=== PATIENT | male | born 1985 | race Caucasian/White ===

== ENCOUNTER 2022-08-11 15:42 | Emergency (ER) | payer OTHER, SELFPAY ==
[2022-08-11 15:46] VITALS: BP 143/84; PULSE 80; RESP 18; TEMP 36.6; O2SAT 98; BMI 42.9
--- NOTE | 2022-08-11 16:10 | CRLHL7_ITS ---
For Patients: As a result of the Century Cures Act, medical imaging exams and procedure reports are released immediately into your electronic medical record. You may view this report before your referring provider. If you have questions, please contact your health care provider. INDICATION: Abnormal fullness, anterior neck pain. TECHNIQUE: CT head without contrast. COMPARISON: None. FINDINGS: CSF spaces: Within normal limits for age. Brain parenchyma: The chau-white differentiation is normal. No sign of mass, hemorrhage, or midline shift. Skull base and calvarium: The visualized paranasal sinuses and mastoid air cells demonstrate no acute or significant findings. The visualized orbits are grossly unremarkable. No skull fractures. IMPRESSION: Unremarkable noncontrast head CT. Please note that all CT scans at this facility use dose modulation, iterative reconstruction, and/or weight-based dosing when appropriate to reduce radiation dose to as low as reasonably achievable. Dictated by Jhonny Vega MD @ 08/11/2022 5:25:44 PM (Electronically Signed)
--- NOTE | 2022-08-11 16:10 | CRLHL7_ITS ---
For Patients: As a result of the Century Cures Act, medical imaging exams and procedure reports are released immediately into your electronic medical record. You may view this report before your referring provider. If you have questions, please contact your health care provider. INDICATION: Abnormal fullness, anterior neck pain. TECHNIQUE: CT soft tissue of the neck was acquired with 147 cc Isovue 370 IV contrast. COMPARISON: None. FINDINGS: Skull base: Unremarkable. Pharynx/Larynx/Trachea: Epiglottis is normal. Airway is patent. Small left pontine tonsillith. Adjacent soft tissues are otherwise normal. Salivary glands: Unremarkable. Thyroid gland: Unremarkable. No significant nodules. Lymph nodes: No lymphadenopathy. Vessels: Unremarkable for age. Bones: Unremarkable for age. Misc: No inflammation, mass or fluid collection. Lung apices: Unremarkable. IMPRESSION: Unremarkable soft tissue CT of the neck. Please note that all CT scans at this facility use dose modulation, iterative reconstruction, and/or weight-based dosing when appropriate to reduce radiation dose to as low as reasonably achievable. Dictated by Jhonny Vega MD @ 08/11/2022 5:30:43 PM (Electronically Signed)
--- NOTE | 2022-08-11 16:15 | ED.GENADULT ---
HPI - General Adult General Chief complaint: Headache/Migraine Stated complaint: Needs CT for neck Time Seen by Provider: 08/11/22 15:50 Source: patient Mode of arrival: ambulatory History of Present Illness HPI narrative: 37-year-old male smoker presents with a 3 week history of headache starting in the right occiput radiating above the top of the head in into the area behind the right eye. It is not associated with vision changes. Patient reports that this started 3 weeks ago. 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 He was drinking alcohol but did not have any trauma or injury. He states that he had a mild headache initially that he attributed to hangover. When he was about to leave from the trip, he cleared his throat while he happened to be looking down and had sudden pain in the posterior neck area. Does not radiate. No radiculopathy in the arms. Patient states that he was evaluated in urgent care was prescribed prednisone on Monday, started Monday which is 5 days ago. He was also prescribed Flexeril. The Flexeril makes him quite sleepy any takes it in the evening but it does certainly help him fall asleep. His headache has actually been improving a little bit over the past couple of days just in the mornings but does build throughout the day. He takes some ibuprofen in the morning which does a good job of taking care of the headache until about 330. The headache starts to return it does improve if he takes the ibuprofen again worsening in the evenings. It is not associated with neurological changes like vision lost, swallowing difficulty, speech changes, balance or gait issues. He followed up today with primary care as he was directed to do, they had some concerns. This morning he states that when he cleared his voice, he had sudden anterior neck pain, near the Jean-Claude's apple and has now had a hoarse voice ever since that time. He still has the headache but does feel like the prednisone is helping somewhat with that. No injury or trauma. Does not take any blood thinners. Continues to eat and drink normally, has no long-term health problems. He was referred to the ED for imaging by primary care due to concerns with an anatomical injury causing his head and neck pains. Past medical history states his notable only for tobacco use and obstructive sleep apnea, does use CPAP. He takes no long-term prescriptions but has started taking the prednisone and Flexeril as prescribed. Allergies are to Ceclor causing hives. Socially is a smoker, rare social alcohol use, no pertinent travel. No other affected family members. ROS is notable for the generalized HEENT and throat symptoms as described above. Otherwise denies times 12 systems Related Data Previous Rx's Medication Instructions Recorded cyclobenzaprine 10 mg tablet 10 mg PO TID PRN muscle spasm #20 08/05/22 tabs prednisone 20 mg tablet 40 mg PO QDAY #10 tabs 08/05/22 Allergies Allergy/AdvReac Type Severity Reaction Status Date / Time cefaclor [From Ceclor] Allergy Severe Hives Verified 08/11/22 16:45 insect venom Allergy Severe Unknown Verified 08/11/22 16:45 [facility] Medical History ADHD SAPNA (obstructive sleep apnea) Smokes cigarettes Social History Smoking Status: Current every day smoker Exam Const: Vital Signs, click to edit/add: Vital Signs - 24 hr 08/11/22 15:46 Temperature 97.9 F Pulse Rate [Right Pulse Oximeter] 80 Respiratory Rate 18 Blood Pressure [Ri ght Upper Arm] 143/84 H Pulse Oximetry 98 Oxygen Delivery Me thod Room Air Documenting provider has reviewed patient's vital signs: yes General appearance: cooperative and well kempt HENMT: Common normals: normocephalic, TM's normal bilaterally and external nose normal Head and scalp: normocephalic Nose: external nose normal Tympanic membrane: TM's normal bilaterally Mouth: oral and palatal mucosa normal Throat: posterior oropharynx normal Eye: Common normals: PERRL, EOMs intact bilaterally and conjunctivae normal General eye: normal appearance of both eyes Conjunctiva: conjunctiva(e) normal Pupil: PERRL Neck & C-Spine: Common normals: full ROM, no lymphadenopathy, supple, no meningeal signs and thyroid normal General: normal visual inspection and trachea midline; no anterior neck swelling and no torticollis Thyroid: thyroid normal Cervical spine: cervical ROM normal and normal cervical lordosis; no pain with cervical ROM Resp: Common normals: normal respiratory effort and no use of accessory muscles Effort & inspection: able to speak in complete sentences Other: mild expiratory wheeze only. Cardio: Common normals: regular rate, regular rhythm, S1 normal heart sound, S2 normal heart sound, no murmurs and peripheral pulses 2+ throughout Rate: regular rate Rhythm: regular rhythm Heart sounds: S1 normal and S2 normal Peripheral pulses: pulses 2+ throughout Extremity: Common normals: full ROM and normal capillary refill Neuro: Meningeal signs: no meningeal signs Speech: speech normal Gait (neuro): normal gait Motor exam: strength 5/5 throughout, no tremor noted and no movement abnormalities noted Psych: Appearance: well kempt Mood and affect: euthymic mood Insight: insight good Judgement: judgment good Skin: Common normals: no rashes or lesions noted General skin exam: no rashes or lesions noted Course Vital Signs Vital signs: Initial Vital Signs Temperature 97.9 F 08/11/22 15:46 Temperature Source Temporal Artery Scan 08/11/22 15:46 Pulse Rate 80 08/11/22 15:46 Respiratory Rate 18 08/11/22 15:46 Blood Pressure 143/84 H 08/11/22 15:46 Blood Pressure Mean 103 08/11/22 15:46 Blood Pressure Position Sitting 08/11/22 15:46 Pulse Oximetry 98 08/11/22 15:46 Oxygen Delivery Method 08/11/22 15:46 Vital Signs Temperature 97.9 F 08/11/22 15:46 Pulse Rate 80 08/11/22 15:46 Respiratory Rate 18 08/11/22 15:46 Blood Pressure 143/84 H 08/11/22 15:46 Pulse Oximetry 98 08/11/22 15:46 Oxygen Delivery Method 08/11/22 15:46 Temperature 97.9 F 08/11/22 15:46 Pulse Rate 80 08/11/22 15:46 Respiratory Rate 18 08/11/22 15:46 Blood Pressure 143/84 H 08/11/22 15:46 Pulse Oximetry 98 08/11/22 15:46 Oxygen Delivery Method 08/11/22 15:46 Medical Decision Making MDM Narrative Medical decision making narrative: Headache and anterior neck pain following minor potential injury. No signs of CSF leak, head trauma, stroke-like symptoms. New onset headache with worsening presentation, somewhat concerning. I recommended a basic metabolic workup deltoid electrolytes, blood sugar, hydration status, inflammatory markers. He significantly concerned regarding an anatomical injury as was primary care team, recommended a head CT and a neck soft tissue CT to evaluate for any contributing factors. He he was agreeable to this. Awaiting findings. No treatments in the interim. discussed findings with patient. Inflammatory markers are normal. CTs are reassuring. Suspect acid reflux as the etiology of his throat pain today. Recommended continuing on the prednisone since it is helping quite a bit with the headaches. Discussed Tylenol, ibuprofen and continued use of the Flexeril p.r.n.. Chiropractic appointment on Monday if not improving. Follow-up appointment with primary care if not improving in 3 weeks. He verbalizes understanding and agreement, all questions answered Lab Data Lab results reviewed: Yes I reviewed the patient's lab results Labs: Lab Results 08/11/22 08/11/22 Range/Units 16:33 16:33 WBC 13.26 H (4.50-11.00) K/uL RBC 5.38 (4.30-5.90) m/uL Hgb 16.7 (13.5-17.5) gm/dL Hct 47.6 (37.0-53.0) % MCV 89 (80-100) fL MCH 31 (26-34) pg MCHC 35 (32-36) gm/dL RDW Coeff of Kev 11.7 (11.5-15.5) % Plt Count 260 (140-440) K/uL Neut % (Auto) 77.6 H (42.0-72.0) % Lymph % (Auto) 16.4 L (20-44) % [place] % (Auto) 5.1 (0.0-11.0) % Eos % (Auto) 0.0 (0.0-7.0) % Baso % (Auto) 0.1 (0.0-3.0) % Neut # (Auto) 10.30 H (1.7-7.0) K/uL Lymph # (Auto) 2.20 (0.90-2.90) K/uL [place] # (Auto) 0.70 (0.00-0.90) K/UL Eos # (Auto) 0.00 (0.00-0.50) K/uL Baso # (Auto) 0.00 (0.00-0.30) K/uL Sodium 139 (135-149) mmol/L Potassium 4.1 (3.6-5.1) mmol/L Chloride 105 (96-114) mmol/L Carbon Dioxide 26 (20-32) mmol/L BUN 17 (5-24) mg/dL Creatinine 0.7 (0.5-1.5) mg/dL Estimated Creat Clear 152.08 Estimated GFR 123 ml/min Glucose 95 (60-115) mg/dL Calcium 9.3 (8.4-10.6) mg/dL C-Reactive Protein < 0.5 L (0.5-1.0) mg/dL Imaging Data CT of the head and neck: Attestation: I have reviewed the pertinent imaging results. My impression: normal Radiologist's impression: IMPRESSION: Unremarkable noncontrast head CT. IMPRESSION: Unremarkable soft tissue CT of the neck. Discharge Plan Discharge Clinical Impression: Headache, Neck pain Patient Disposition: Home w/ Parent or Adult Condition: Stable Instructions: Acute Headache (DC) Additional Instructions: Good news. The scans look normal. There are no signs of any major injuries in your neck, muscle tears, nerve injuries, infections or other worrisome findings. The head also does not show any tumors, skull fractures or any other worrisome features. I am glad to hear that the prednisone is helping with the headache. What I would recommend is that you take 1 tablet in the morning and then repeat the 2nd tablet at noon for the next 2 days. Take your ibuprofen in the morning, repeat at noon and repeat at 6:00 p.m.. You can mix Tylenol and also if there is persistent headache. I suspect that the prednisone is causing some increased acid reflux especially with your use of your CPAP as we discussed. It is okay to take omeprazole or other stomach acid medicines which are available [id number] to help with that irritation. It should heal within a few days. The prednisone will keep working for a few more days as well. Your inflammatory markers and other blood work were all also very reassuring. Chances are this started from some sort of a virus like influenza, COVID or something similar. When this happens the headaches do tend to last a few weeks but resolved without complication. If you are still symptomatic on Monday, I would make an appointment with a chiropractor. If you are still having symptoms in 3 weeks, I would make a follow-up appoint with my primary care doctor for additional lab testing to look for tick-borne illness, other unusual causes of chronic headaches. You may resume all typical activities, consider taking a half dose of your Flexeril if it is too sedating. Activity Level: No Restrictions Prescriptions: No Action cyclobenzaprine 10 mg tablet 10 mg PO TID PRN (Reason: muscle spasm) Qty: 20 0RF prednisone 20 mg tablet 40 mg PO QDAY Qty: 10 0RF Follow Up/Referrals: Provider,Not a Local [Primary Care Provider] - Stand Alone Forms: [employer] Info Instructions
[2022-08-11 16:49] LABS: Basophils Percent Auto 0.1 % (0.0-3.0); Hematocrit 47.6 % (37.0-53.0); Hemoglobin* 16.7 gm/dL (13.5-17.5); Immature Granulocytes Pct Auto 0.8 %; Lymphocytes Percent Auto 16.4 % (20-44); Mean Corpuscular HGB Conc 35 gm/dL (32-36); Mean Corpuscular Hemoglobin 31 pg (26-34); Mean Corpuscular Volume 89 fL (80-100); Monocytes Percent Auto 5.1 % (0.0-11.0); Neutrophils Percent Auto 77.6 % (42.0-72.0); Platelet Count* 260 K/uL (140-440); RDW Coefficient of Variation % 11.7 % (11.5-15.5); Red Blood Count 5.38 m/uL (4.30-5.90); White Blood Count* 13.26 K/uL (4.50-11.00)
[2022-08-11 16:52] LABS: Slide Review Reflex No
[2022-08-11 17:02] LABS: Chloride* 105 mmol/L (96-114)
[2022-08-11 17:03] LABS: Potassium* 4.1 mmol/L (3.6-5.1); Sodium* 139 mmol/L (135-149)
[2022-08-11 17:05] LABS: Creatinine* 0.7 mg/dL (0.5-1.5); Est. Creatinine Clearance* 152.08; Estimated Glomerular Filt Rate 123 ml/min
[2022-08-11 17:06] LABS: Blood Urea Nitrogen* 17 mg/dL (5-24); Calcium* 9.3 mg/dL (8.4-10.6); Carbon Dioxide* 26 mmol/L (20-32); Glucose* 95 mg/dL (60-115)
[2022-08-11 17:09] LABS: C Reactive Protein* < 0.5 mg/dL (0.5-1.0)
[2022-08-11 17:45] VITALS: BP 138/106; PULSE 99; RESP 16; O2SAT 97
== END 2022-08-11 17:58 | disposition home or self-care (01) ==
PROVIDERS: Emergency Provider Family Medicine
DX: R51.9 Headache, unspecified (principal); M54.2 Cervicalgia
CPT/HCPCS: 36415; 70450; 70491; 80048; 85025; 86140; 99283; 99284; 99285; Q9967